=== PATIENT | male | born 1950 | race Caucasian/White ===

== ENCOUNTER 2019-03-13 06:53 | Outpatient (CLI) | payer OTHER ==
[2019-03-13 14:37] LABS: #Basophils 0.1 thou/uL (0.0-0.2); #Eosinphils 0.2 thou/uL (0.0-0.7); #Lymphocytes 2.5 thou/uL (1.20-3.40); #Monocytes 0.8 thou/uL (0.11-0.59); #Neutrophils 4.3 thou/uL (1.40-6.50); %Basophils 1.2 % (0.0-1.0); %Eosinophils 2.9 % (0.0-10.0); %Lymphocytes 31.5 % (21.0-51.0); %Monocytes 10.1 % (0.0-10.0); %Neutrophils 54.2 % (42.0-75.0); Hemoglobin 16.3 g/dL (14.0-18.0); Mean Corpuscular HGB CONC 33.3 g/dL (32.0-36.0); Mean Corpuscular Hemoglobin 32.7 pg (27.0-31.0); Mean Corpuscular Volume 98.3 fL (78.0-98.0); Mean Platelet Volume 7.1 fL (7.4-10.4); Platelet Count 228 thou/uL (130-400); RBC Distribution Width 11.9 % (11.5-14.5); Red Blood Cell (RBC) Count 4.98 mill/uL (4.70-6.10); White Blood Cell (WBC) Count 7.9 thou/uL (4.8-10.8)
[2019-03-13 14:40] LABS: Bacteria/HPF None Seen HPF (None Seen); Bilirubin Negative (Negative); Blood, Urine Negative (Negative); Clarity Clear (Clear); Glucose, Urine (Dipstick) Normal (Negative); Leukocyte Negative Leu/uL (Negative); Nitrite Negative (Negative); Protein, Urine (Dipstick) Negative (Neg-Trace); RBC/HPF 0-3 HPF (0-3); Squamous Epithelial None Seen HPF (0-3); Urobilinogen Normal mg/dL (Less than 2); WBC/HPF 0-3 HPF (0-3)
[2019-03-13 14:57] LABS: Anion Gap 14 mmol/L (10-20); BUN (Urea Nitrogen) 15 mg/dL (8.4-25.7); Calc. Creatinine Clearance 0 mL/min (70-130); Calcium 9.7 mg/dL (7.8-10.44); Carbon Dioxide 29 mmol/L (23-31); Chloride 101 mmol/L (98-107); Estimated GFR-MDRD 86; Glucose 86 mg/dL (80-115); Potassium 3.7 mmol/L (3.5-5.1); Sodium 140 mmol/L (136-145)
--- NOTE | 2019-03-17 16:12 | EKG ---
Test Reason : Blood Pressure : / mmHG Vent. Rate : 054 BPM Atrial Rate : 070 BPM P-R Int : 000 ms QRS Dur : 096 ms QT Int : 436 ms P-R-T Axes : 000 036 021 degrees QTc Int : 413 ms Atrial fibrillation with slow ventricular response Abnormal ECG No previous ECGs available Confirmed by DR. Renetta MONTERO ([id number]) on 03/17/2019 4:11:49 PM Referred By: DANIEL Confirmed By:DR. Renetta MONTERO
== END 2019-03-13 06:54 | disposition home or self-care (01) ==
LOC: LABBT 06:53
PROVIDERS: ATTEND Orthopaedic Surgery Hand Surgery
DX: Z01.818 Encounter for other preprocedural examination (principal); M72.0 Palmar fascial fibromatosis [Dupuytren]
CPT/HCPCS: 80048; 81001; 85025; 93005; 93010

== ENCOUNTER 2020-03-25 06:47 | Outpatient (CLI) | payer OTHER ==
[2020-03-25 15:14] LABS: Anion Gap 15 mmol/L (10-20); BUN (Urea Nitrogen) 16 mg/dL (8.4-25.7); Calc. Creatinine Clearance 0 mL/min (70-130); Carbon Dioxide 27 mmol/L (23-31); Chloride 102 mmol/L (98-107); Estimated GFR-MDRD 82; Glucose 112 mg/dL (80-115); Potassium 3.7 mmol/L (3.5-5.1); Sodium 140 mmol/L (136-145)
[2020-03-25 15:27] LABS: #Basophils 0.1 10x3/uL (0.0-0.2); #Eosinphils 0.2 10x3/uL (0.0-0.5); #Monocytes 0.9 10x3/uL (0.0-1.1); #Neutrophils 4.4 10x3/uL (1.5-8.4); %Basophils 0.7 % (0.0-2.0); %Eosinophils 2.7 % (0.0-6.0); %Lymphocytes 31.2 % (18.0-47.0); %Neutrophils 54.3 % (40.0-75.0); Mean Corpuscular HGB CONC 32.5 G/DL (32.0-36.0); Mean Corpuscular Hemoglobin 31.3 PG (27.0-33.0); Mean Corpuscular Volume 96.5 fl (80.0-100.0); Mean Platelet Volume 9.5 fl (7.4-10.4); Platelet Count 229 10x3/uL (130-400); RBC Distribution Width 12.5 % (11.5-14.5); Red Blood Cell (RBC) Count 4.79 10x6/uL (4.40-5.80); White Blood Cell (WBC) Count 8.2 10x3/uL (4.5-11.0)
[2020-03-26 03:42] LABS: SARS-CoV-2 MS2 Positive; SARS-CoV-2 N Gene Negative; SARS-CoV-2 S Gene Negative; SARS-CoV-2 by NAA Not Detected (NotDetected); SARS-CoV-2 orf1ab Negative
== END 2020-03-25 06:48 | disposition home or self-care (01) ==
LOC: LABBT 06:47
PROVIDERS: ATTEND Orthopaedic Surgery Hand Surgery
DX: Z01.818 Encounter for other preprocedural examination (principal); Z20.828 Contact with and (suspected) exposure to other viral communicable diseases; M72.0 Palmar fascial fibromatosis [Dupuytren]
CPT/HCPCS: 80048; 85025; 87635; 93005; 93010; U0003

== ENCOUNTER 2020-03-31 05:29 | Day surgery (SDC) | payer OTHER ==
[2020-03-24 16:36] VITALS: BMI 27.1
[~2020-03-31 05:29] MED LIST: Collagenase Clostridium Hist. 0.9 MG VIAL IJ SCH
[2020-03-31] MEDS ORDERED: Fentanyl 100 MCG/2 ML VIAL ONE (06:26)
[2020-03-31] MEDS ORDERED: Midazolam HCl 2 mg/2 ml Vial ONE (06:26)
[2020-03-31] MEDS ORDERED: Vancomycin 1 GM/200 ML BAG ONE ×2 (07:20→07:21)
[2020-03-31] MEDS ORDERED: Collagenase Clostridium Hist. 0.9 MG VIAL IJ SCH (10:45)
[2020-03-31] MEDS ORDERED: Ondansetron PF 4 MG/2 ML Vial ONE (12:15)
[2020-03-31] MEDS ORDERED: PROPOFOL 200 MG/20 ML VIAL ONE (12:15)
[2020-03-31] MEDS ORDERED: Lidocaine 1% PF 5 ML VIAL ONE (12:15)
[2020-03-31] MEDS ORDERED: ePHEDrine 50 MG/ML VIAL ONE (12:15)
[2020-03-31] MEDS ORDERED: Glycopyrrolate 0.2 MG/ML 5 ML SYRINGE ONE (12:15)
--- NOTE | 2020-04-01 06:47 | OP ---
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 PROCEDURES PERFORMED: Xiaflex injection, above digits, each individual cord injected every 2 cm with Xiaflex and each injection involved 0.3 mL of solution. COMPLICATIONS: None. No rash. No intense swelling. No bleeding seen even though patient just withdrew four days ago from Pradaxa. INDICATION: The patient with thick long cords in all digits with webspace contracture of the thumb and multiple digit PIP and MP joint contractures on every digit, most mild at the middle fingers and most severe at the thumbs and small fingers except for on the right side, where he has no small finger and it is most severe on the right ring finger. DESCRIPTION OF PROCEDURE: After general LMA technique, the limbs were prepped and draped. Sterile technique was used. We then mixed each bottle of Xiaflex, diluted with the powder as directed slowly without shaking or stirring. Then, we freddie them up individually sterilely using a TB syringe to control dosage. We identified each cord, first on the left hand and for every 2 cm of length each cord received an oblique angle 0.3 mL of injected solution. We then watched the area for 30 seconds to make sure there was no undue bleeding or reaction before proceeding. This first began with the thumb and the webspace on the left and proceeded from thumb towards the small finger on the right side. On the right side, there was a total of, using the formula I listed above, 18 sites or a total of nearly 6 mL. On the right side, there were fewer sites of injection primarily because of the right small finger was missing and the contracture in the middle finger was much less. We still used the same formula, for every 2 cm of thickened cord, we gave an obliquely oriented injection of Xiaflex, each time 0.3 mL. After this was accomplished, the patient then had the staining of the blood from injection cleaned, Band-Aids were applied to each site or group of sites and he had normal circulation without undue swelling, no rash, no shortness of breath and he was awaken without complication. He tolerated the procedure well. Job ID: [id number]
== END 2020-03-31 10:29 | disposition home or self-care (01) ==
LOC: SDC 05:29
PROVIDERS: ATTEND Orthopaedic Surgery Hand Surgery
PROC: 3E013TZ Introduction of Destructive Agent into Subcutaneous Tissue, Percutaneous Approach (ICD-10-PCS; principal; 2020-03-31)
DX: M72.0 Palmar fascial fibromatosis [Dupuytren] (principal); Z79.899 Other long term (current) drug therapy; Z88.0 Allergy status to penicillin; Z91.013 Allergy to seafood
CPT/HCPCS: J0775; J2250; J2405; J2704; J3010; J3370; J3490